=== PATIENT | male | born 1995 | race African-American/Black ===

== ENCOUNTER 2020-06-10 01:36 | Emergency (ER) | payer OTHER ==
[~2020-06-10] VITALS: Ht 188 cm; Wt 115.7 kg
[2020-06-10] MEDS ORDERED: NEURONTIN300 MG (01:48)
[2020-06-10] MEDS ORDERED: PROZAC10 M1 (01:49)
[2020-06-10] MEDS ORDERED: ZOLOFT25 MG (01:49)
[2020-06-10 03:13] VITALS: BP 127/68
== END 2020-06-10 03:24 | disposition home or self-care (01) ==
LOC: ER 01:36
DX: R11.2 Nausea with vomiting, unspecified (principal); M54.5 Low back pain; Z79.899 Other long term (current) drug therapy; Z88.0 Allergy status to penicillin; Z88.1 Allergy status to other antibiotic agents